=== PATIENT | female | born 1960 | race Caucasian/White ===

== ENCOUNTER 2019-11-04 13:39 | Outpatient (CLI) | payer OTHER, SELFPAY ==
--- NOTE | 2019-11-04 13:45 | US_ITS ---
WS: [id number] PELVIC ULTRASOUND REASON FOR VISIT: DYSPAREUNIA TECHNIQUE: Grayscale and Doppler transabdominal ultrasound of the pelvis. FINDINGS: Transabdominal transvaginal evaluation. Uterus measures 4.0 cm x 3.2 cm x 2.4 cm, right ovary measures 1.5 cm x 1.5 cm x 0.7 cm, and left ova ry measures 1.9 cm x 1.9 cm x 1.1 cm. A small uterus in normal position is seen. The cervix appears to be normal. Small ovaries are seen with normal blood flow. The adnexa shows no masses are abscess. Cul-de-sac area was normal. US/US pelvic with transvaginal IMPRESSION: Small uterus with no adnexal masses.
== END 2019-11-04 13:40 | disposition home or self-care (01) ==
LOC: US 13:41
PROVIDERS: Family Provider Nurse Practitioner; PCP Nurse Practitioner; Visit Provider Nurse Practitioner
DX: N94.10 Unspecified dyspareunia (principal)
CPT/HCPCS: 76830; 76856